=== PATIENT | female | born 1945 | race Caucasian/White ===

== ENCOUNTER 2020-07-23 05:25 | Day surgery (SDC) | payer MEDICARE ==
[~2020-07-23] VITALS: Ht 168 cm; Wt 92.0 kg
[~2020-07-23 05:25] MED LIST: CEFDINIR300 MG PO; DUONEB 2.5-0.5M1 AMP INH; IPRAT-ALBUT 0.5-3 ML INH; ISOSORBIDE MONO60 MG PO; LACTINEX1 EACH PO; LASIX20 MG PO; LOPRESSOR50 MG PO; MEDROL 4MG DOSEP4 MG PO; MUCINEX 600MG600 MG PO; NORVASC5 MG PO; NYSTATIN SUSP1 ML/ML SSP; ONDANSETRON ODT4 MG PO/SL; PREDNISONE20 MG PO; SYNTHROID75 MCG PO; TAMIFLU 75MG CA75 MG PO; TESSALON PERLE100 M1 PO; TOPROL XL 50 MG50 MG PO; VALSARTAN-HCTZ1 EAC1 PO; VALSARTAN160 MG PO; VENTOLIN HFA IN18 GM INH; asa
[2020-07-23] MEDS ORDERED: [UNRECOGNIZED DRUG - OTHER] PO (05:59)
--- NOTE | 2020-07-23 16:40 | NUR ---
PT ADMITTED TO FLOOR VERY LATHERGIC, VERY LITTLE MOVMENT, OR RESPONCE. NARCAN GIVEN PER CHARTER DRIVER
[2020-07-24 05:52] LABS: BASOPHIL 0.3 % (0-2); EOSINOPHIL 0.2 % (0-7); HCT 36.6 % (37.0-47.0); HGB 11.3 g/dl (12.5-16.0); LYMPHOCYTE 9.7 % (15-48); MCH 30.4 pg (25.0-31.0); MCHC 30.9 g/dL (32.0-36.0); MCV 98.4 fL (78.0-100.0); MONOCYTE 6.6 % (0-12); MPV 11.4 fL (6.0-9.5); NEUTROPHIL 82.7 % (41-80); NRBC 0; PLT 149 K/uL (150-400); RBC 3.72 M/uL (4.20-5.40); RDW 13.4 % (11.5-14.0); WBC 19.8 K/uL (4.0-10.5)
[2020-07-24 06:16] LABS: BUN/CREAT RATIO (CALC) 16.1 RATIO; CREATININE 1.55 mg/dL (0.51-0.95); POTASSIUM 4.9 mmol/L (3.5-5.1)
[2020-07-24] MEDS ORDERED: ULTRA-LIGHT RO1 EACH XX (09:24)
[2020-07-24] MEDS ORDERED: FEOSOL325 MG PO (10:24)
[2020-07-24] MEDS ORDERED: XARELTO10 MG PO (10:24)
--- NOTE | 2020-07-24 10:37 | NUR ---
[facility] HAS DELIVERED A ROLLING WALKER TO PATIENT. PT. REQUESTED OUTPT. AT [facility]. FIRST APPT. IS 07/25/20 AT 12:30 P.M. ADVISED MERLY ARAIZA.
--- NOTE | 2020-07-24 13:46 | NUR ---
PER HERNANDEZ FRIEDMAN, ORTHO LIASION, PT. WILL BE GETTING SAMPLES OF XARELTO FROM THE OFFICE.
[2020-07-25] MEDS ORDERED: ZOFRAN4 M1 PO (10:04)
== END 2020-07-24 15:47 | disposition home or self-care (01) ==
LOC: FSDC 05:25 → FMS 05:25 → FAS 05:25 → FMS 07:00 → EDSTATUS 08:30 → FMS 08:30 → FSDC 10:07 → FMS 10:07 → FAS 07-24 15:47
PROVIDERS: Legal Medicine
DX: M16.11 Unilateral primary osteoarthritis, right hip (principal); J44.9 Chronic obstructive pulmonary disease, unspecified; I25.10 Atherosclerotic heart disease of native coronary artery without angina pectoris; I11.0 Hypertensive heart disease with heart failure; I50.9 Heart failure, unspecified; E78.5 Hyperlipidemia, unspecified; K21.9 Gastro-esophageal reflux disease without esophagitis; E89.0 Postprocedural hypothyroidism; F17.210 Nicotine dependence, cigarettes, uncomplicated; Z95.1 Presence of aortocoronary bypass graft; Z82.49 Family history of ischemic heart disease and other diseases of the circulatory system; Z99.81 Dependence on supplemental oxygen; Z88.7 Allergy status to serum and vaccine; Z91.048 Other nonmedicinal substance allergy status; Z79.899 Other long term (current) drug therapy
CPT/HCPCS: 36415; 73501; 76000; 80048; 85025; 86850; 86900; 86901; 94010; 94640; 94762; 97110; 97116; 97162; 97166; 97530; 97530-GP; C1776; J0171; J0697; J1100; J1170; J1885; J2250; J2270; J2310; J2405; J2704; J2710; J2795; J3010; J7120